=== PATIENT | male | born 1980 | race Caucasian/White ===

== ENCOUNTER 2017-08-20 00:32 | Emergency (ER) | payer OTHER ==
[~2017-08-20] VITALS: Ht 180.3 cm; Wt 126.6 kg
[2017-08-20] MEDS ORDERED: ATORVASTATIN CA10 M1 PO (00:46)
[2017-08-20 00:51] LABS: HEMOGLOBIN 15.9 g/dL (14.1-18.0); LYMPH # 3.5 K/mm3 (0.7-4.5); LYMPH % 36.5 % (10-50)
[2017-08-20 01:04] LABS: URINE BLOOD 3+ (NEG)
[2017-08-20 01:06] LABS: URINE BILIRUBIN - DIPSTICK NEGATIVE (NEG)
--- NOTE | 2017-08-20 01:06 | Emergency Room Report ---
History of Present Illness Time Seen by [id number] Presenting Problem in Triage Pt arrived:Walked Presenting Problem:LOWER RIGHT QUAD PAIN, STARTED AT MIDNIGHT, ACHING, NAUSEATED , CERTAIN MOVEMENTS MAKE PAIN BETTER AND WORSE. Onset of symptoms date/time:08/20/17 or onset unknown for: Treatment Prior to Arrival: [employer] Provided by: Sepsis Risk Assessment: Temp: 97.6 B/P: 157/91 MAP: 113 Pulse: 66 Resp: 20 Recent fever? N Clinical Suspician of Infection? N Mental Status: 1 - Regular (Normal Baseline) Sepsis Risk:Low Sepsis Risk Have you (or family members/close friends) recently traveled outside the [place]? N If Yes, where/when: Have you had exposure to infectious disease within the past month? N TB? Other? Specify: Source patient, RN notes reviewed, old records Exam Limitations no limitations Comment acute onset of rt lower abd pain with nausea but no fever or rash and no trauma Cardiac Chest Pain Chest pain indicative of cardiac No Timing/Duration this evening Severity moderate ALLERGIES Coded Allergies: No Known Allergies (08/20/17) Home Medications Reported Medications Atorvastatin Calcium 10 MG PO DAILY #30 History Medical History General Angina: No SD: No Hypertension? No Hyperlipidemia? No CHF? No COPD? No Asthma? No CVA? No Seizures? No Diabetes? No GB Disease: No MRSA? No TB? No Cancer? No Immunization Hx DT/Tetanus 5-10 Years Ago Surgical Hx Previous Surgery?N Social History Smoking Hx Smoker: Never Smoker Tobacco: No Type Cigarettes Alcohol Alcohol: No Drugs none Review of Systems All Other Systems Reviewed and Negative Constitutional denies fever Eyes denies drainage ENT denies: ear discharge, epistaxis, throat pain. Respiratory denies cough, denies shortness of breath, denies wheezing Cardiovascular denies chest pain, denies palpitations, denies syncope Gastrointestinal see HPI, abdominal pain, nausea, denies vomiting Genitourinary denies: dysuria, frequency, hesitancy, hematuria, scrotal/testicular pain. Musculoskeletal denies back pain, denies joint pain, denies joint swelling, denies neck pain Skin denies rash Psychiatric/Neurological denies headache, denies seizure Physical Exam Vital Signs Vital Signs Date Time Temp Pulse Resp B/P Pulse O2 O2 Flow FiO2 Ox Delivery Rate 08/20 0039 97.6 66 20 157/91 97 - WBC >12,000 or <4,000 or 10% bands? 2 or more SIRS Criteria Met? B/P:157/91 MAP:113 Creatinine >2.0? UA output<0.5ml/kg/hr for 2 hrs? Platelet count >100,000? Lactate >2.0mmol/1? INR >1.2 or PTT > than 60 sec? Evidence of Organ Dysfunction? Provider documented clinical suspician of infection? N Sepsis Criteria Count: 1 Sepsis Risk: Low Sepsis Risk General Appearance no apparent distress Eye Exam - bilateral eye PERRL, bilateral eye EOMI Ear, Nose, Throat normal ENT inspection Neck supple Respiratory Status No: respiratory distress. 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 No Results/Orders Laboratory Tests 08/20/17 0055: Urine Color RED, Urine Appearance TURBID, Urine pH 5.5, Ur Specific [place] >= 1.030, Urine Protein 1+ H, Urine Ketones TRACE H, Urine Blood 3+ H, Urine Nitrate NEGATIVE, Urine Bilirubin NEGATIVE, Urine Urobilinogen 0.2, Ur Leukocyte Esterase NEGATIVE, Urine RBC TNTC, Urine WBC 3-5, Ur Squamous Epith Cells 3-5, Amorphous Sediment TRACE, Urine Glucose NEGATIVE 08/20/17 0045: Sodium 140, Potassium 3.8, Chloride 104, Carbon Dioxide 28, BUN 19 H, Creatinine 1.2, Estimated Creat Clear 154, Estimated GFR (MDRD) 69, Glucose 125 H, Calcium 8.7, Total Bilirubin 0.5, AST 34, ALT 64, Alkaline Phosphatase 83, Total Protein 7.4, Albumin 3.9, Globulin 3.5 H, Albumin/Globulin Ratio 1.1, Amylase 51, Lipase 126, WBC 9.6, RBC 5.34, Hgb 15.9, Hct 49.3, MCV 92.2, RDW 13.1, Plt Count 244, MPV 7.9, Gran % 54.7, Gran # 5.3, Lymphocytes % 36.5, Monocytes % 7.4, Eosinophils % 0.9, Basophils % 0.5, Lymphocytes # 3.5, Monocytes # 0.7, Eosinophils # 0.1, Basophils # 0.0, PUBS MCHC 32.3, MCH 29.8 Current Medication Orders Sig/Alicia Start time Last Medication Dose Route Stop Time Status Admin Ketorolac 30 MG ONCE ONE 08/20 145 AC Tromethamine IV 08/20 146 Tamsulosin HCl 0.4 MG ONCE ONE 08/20 145 AC PO 08/20 146 Ketorolac 0 .STK-MED ONE 08/20 138 DC Tromethamine .ROUTE Tamsulosin HCl 0 .STK-MED ONE 08/20 137 DC PO Sodium Chloride 10 ML PRN PRN 08/20 45 AC IV 08/21 45 Orders Procedure Date/time Status DIET-NOTHING BY MOUTH 08/[address] ABD & PELVIS W/O CONTRAST 08/[address] SCAN REQ 08/20 46 Active IV SALINE LOCK 08/20 46 Active URINALYSIS/COMPLETE 08/20 46 Complete LIPASE 08/20 46 Complete COMPLETE METABOLIC PANEL 08/20 46 Complete CBC WITH AUTO DIFF 08/20 46 Complete AMYLASE 08/20 46 Complete XRAY/CT/US XRAY/CT/US CT abdomen, pelvis CT interpretation by discussed w/radiologist Time results known: 135 CT Results abnormal ( 2 mm rt stone) Departure Departure Time of Disposition 136 Disposition DC Home or Self Care(routine) Clinical Impression Primary Impression: Renal colic on right side Condition STABLE Referrals Promise PUTNAM,Esvin Sen MD,[facility] Patient Instructions DI for Kidney Stones Additional Instructions fluids and call pcp allie for follow up Discharge Counseling Counseled pt/family regarding diagnosis, test results, medications/RX, follow up needs Prescriptions Current Visit Scripts TAMSULOSIN HCL (Flomax 0.4MG) 0.4 MG PO QHS #30 CAP ED Critical Care Critical Care No at 0138
[2017-08-20] MEDS ORDERED: FLOMAX 0.4MG C0.4 MG PO (01:38)
[2017-08-20 02:13] VITALS: BP 148/88
--- NOTE | 2017-08-20 08:51 | RADIOLOGY REPORT PS360 ---
CT ABD PELVIS W/O CONTRAST CLINICAL INDICATION: Right lower quadrant pain with nausea ABD PAIN ORDERING PHYSICIAN: Edil Phillips MD PATIENT AGE: 36 years COMPARISON: None TECHNIQUE: Axial images obtained with sagittal and coronal reformats. PROCEDURE: Oral Contrast: None IV Contrast: None . FINDINGS: No acute finding in the lung bases. The liver, gallbladder, spleen, adrenal glands, and pancreas have an unremarkable unenhanced CT appearance. There is mild right hydronephrosis and hydroureter secondary to a 3 mm stone at the right ureterovesical junction. Kidneys are otherwise unremarkable. No pelvic mass or abnormal fluid collection. There is diverticulosis of versus nondistended house stress of the sigmoid colon. No evidence of diverticulitis. Unremarkable appendix. No pelvic mass or abnormal fluid collection. No intestinal obstruction or free air. No acute bony anomalies. IMPRESSION: 1. 3 mm right ureterovesical junction stone with mild right-sided obstructive uropathy. 2. No other acute finding.
--- OUTSIDE RECORDS SUMMARY | 2017-08-25 00:47 | External Medical Summary Rpt | CCD ---
Demographics Preferred Language Korean Marital Status Unknown Religion Affiliation Unknown Race Unknown Ethnic Group Unknown Author Author , XIN LAUREN Address Unknown Phone Immunization No patient found.
--- OUTSIDE RECORDS SUMMARY | 2017-08-25 00:47 | External Medical Summary Rpt | CCD ---
Demographics Preferred Language Latvian Marital Status Unknown Taoist Affiliation Unknown Race Unknown Ethnic Group Unknown Author Author , XIN LAUREN Address Unknown Phone Immunization No patient found.
--- OUTSIDE RECORDS SUMMARY | 2017-08-25 00:47 | External Medical Summary Rpt | CCD ---
Author Author , XIN LAUREN Address Unknown Phone [email or web address] Purpose Continuity of Care Document - through 2016
--- OUTSIDE RECORDS SUMMARY | 2017-08-25 00:47 | External Medical Summary Rpt | CCD ---
Author Author [employer] Organization [employer] Address Unknown Phone Unavailable Purpose Continuity of Care Document - through 2016
--- OUTSIDE RECORDS SUMMARY | 2017-08-25 00:47 | External Medical Summary Rpt | CCD ---
Author Author , XIN LARUEN Address Unknown Phone [email or web address] Purpose Continuity of Care Document - through 2016
== END 2017-08-20 02:14 | disposition home or self-care (01) ==
LOC: ER 00:32
PROVIDERS: Emergency Medicine
DX: N20.0 Calculus of kidney (principal)
CPT/HCPCS: J2405